=== PATIENT | female | born 1965 | race Caucasian/White ===

== ENCOUNTER 2020-11-23 16:50 | Emergency (ER) | payer OTHER, SELFPAY ==
[2020-11-23 17:20] VITALS: BP 150/110; PULSE 71; RESP 16; TEMP 36.5; O2SAT 99
--- NOTE | 2020-11-23 17:37 | ED.GENADULT ---
HPI - General Adult General Chief complaint: Upper Respiratory Infection Stated complaint: COVID Time Seen by Provider: 11/23/20 17:15 Source: patient and RN notes reviewed Mode of arrival: ambulatory Limitations: no limitations History of Present Illness HPI narrative: 55 year old female who presents to [facility] with concerns that she has developed dry cough, fatigue, body aches, headaches,chills, nausea and cramping, and brain fog since the 20 of November. Patient states that she knows she had exposure to COVID at [employer] on the with several [employer] members out with COVID. Patient concerned with symptoms being COVID with generalized body aches rated 5/10 has taken Tylenol for her body aches. MD complaint: body aches, headaches, fatigue, cramping with nausea Onset (ago): day(s) (4 days symptoms, exposure on November 11) Location: head (headache) and abdomen (cramping and nausea) Radiation: other (generalized body aches) Severity: moderate Severity scale (1-10): 5 Quality: aching and other (cramping abdomen with nausea) Pain Consistency: intermittent Relieving factors: other (Tylenol) Exacerbating factors: movement Associated symptoms: headaches, nausea/vomiting (nausea and abdominal cramping) and other (body aches, chills, brain fog) Treatments prior to arrival: other (Tylenol) Related Data Home Medications Medication Instructions Recorded Confirmed bupropion HCl 300 mg PO DAILY 11/23/20 11/23/20 ezetimibe-simvastatin 1 tablet PO DAILY 11/23/20 11/23/20 gabapentin 100 mg PO DAILY PRN 11/23/20 11/23/20 gabapentin 300 mg PO HS 11/23/20 11/23/20 propranolol 80 mg PO DAILY 11/23/20 11/23/20 rizatriptan [Maxalt-ROLL WRAPPER] 10 mg PO .PRN PRN 11/23/20 11/23/20 sertraline 100 mg PO BID 11/23/20 11/23/20 Allergies Allergy/AdvReac Type Severity Reaction Status Date / Time trazodone Allergy Unknown Skin Verified 11/23/20 17:29 Reaction calamine Allergy Rash Verified 11/23/20 17:29 Review of Systems Review of Systems: Narrative: CONSTITUTIONAL: Reports no known fever, positive chills, or sweats. EYES: Denies visual changes, redness, or discharge. ENT: Denies rhinorrhea, congestion, sore throat, or otalgia. CARDIOVASCULAR: Denies chest pain, palpitations, or edema. RESPIRATORY: Dry cough no dyspnea. GASTROINTESTINAL: Positive cramping of abdomen, nausea,no vomiting, or diarrhea. GENITOURINARY: Denies dysuria or hematuria. SKIN: Denies rash or itching. MUSCULOSKELETAL: Denies back pain, joint pain, generalized body aches NEUROLOGIC: Positive headache, no numbness, or weakness, states brain fog PSYCHIATRIC: Positive history of anxiety or depression. All systems reviewed & are unremarkable except as noted in HPI and below PMFSH Past Medical History Medical History (Updated 11/24/20 @ 00:00 by Eliana Vargas) Anxiety and depression Hot flashes, menopausal Hyperlipidemia Migraines Surgical History Surgical History (Updated 11/23/20 @ 18:34 by Rebeca Zhang NP) History of abdominoplasty History of endometrial ablation Hx of breast augmentation Family History Family History (Updated 11/23/20 @ 18:45 by Rebeca Zhang NP) Grandparent Heart disease Hypertension Sibling Heart disease Mother Hx of Guillain-[place] syndrome Social History Social History (Updated 11/23/20 @ 18:37 by Rebeca Zhang NP) Smoking status: Never smoker Alcohol intake: current Substance use: never Living arrangements: with family Gender identity (if verbalized by the patient): Female Comments At time of signature, agree with nursing past medical, surgical, social and family history. There is no relevant family history pertinent to the presenting complaint Exam Narrative: Exam Narrative: GENERAL: Well-appearing, well-nourished, and in no acute distress. HEAD: Normocephalic, atraumatic.Frontal headache no trauma, history of migraines, no nystagmus EYES: PERRLA and EOMI. ENT: Nares clear, no rhinorrhea or e
[2020-11-23 17:57] VITALS: BP 146/96
== END 2020-11-23 18:10 | disposition home or self-care (01) ==
PROVIDERS: Emergency Provider Registered Nurse; PCP Internal Medicine
DX: J06.9 Acute upper respiratory infection, unspecified (principal); B34.9 Viral infection, unspecified; Z20.828 Contact with and (suspected) exposure to other viral communicable diseases
CPT/HCPCS: 87426; 99213; C9803; G0463

== ENCOUNTER 2022-06-17 08:30 | Outpatient (CLI) | payer OTHER, SELFPAY ==
--- NOTE | ~2022-06-17 | MM_ITS ---
EXAMINATION: MM scrn nicholas implant BI w arnav HISTORY: Screening mammogram TECHNIQUE: Craniocaudal and mediolateral oblique 3-D tomosynthesis images with implant displacement a nd synthetic 2-D images were generated. Craniocaudal and mediolateral oblique views of the breasts wi thout implant displacement were obtained using full field digital mammography. CAD analysis was submi tted and interpreted. COMPARISON: No prior mammogram is available for comparison at this institution. BREAST PARENCHYMAL COMPOSITION: There are scattered areas of fibroglandular density. FINDINGS: There is no evidence of suspicious mass, calcification, or architectural distortion to sugg est malignancy in either breast. There has been no suspicious interval change. IMPRESSION: 1. No mammographic evidence of malignancy. 2. Recommend routine screening mammography in one year. BI-RADS Category 1: Negative Reviewed, dictated and finalized at location A.
== END 2022-06-17 08:31 | disposition home or self-care (01) ==
PROVIDERS: PCP Internal Medicine; Visit Provider Internal Medicine
DX: Z12.31 Encounter for screening mammogram for malignant neoplasm of breast (principal)
CPT/HCPCS: 77063; 77067

== ENCOUNTER 2023-04-03 01:51 | Day surgery (SDC) | payer OTHER, SELFPAY ==
[2023-03-24 14:13] VITALS: BMI 25.4
[2023-04-03 11:20] VITALS: BP 106/75; PULSE 62; RESP 18; TEMP 36.2; O2SAT 100
[2023-04-03] MEDS: LACTATED RINGERS 1,000 ML 150 ML IV CONT (11:45)
--- NOTE | 2023-04-03 11:51 | PM.HPGS ---
History of Present Illness History of Present Illness Consent: Risks, benefits, and alternatives have been discussed and questions answered. Patient agrees to proceed with procedure. Chief complaint: IBS-D Narrative: Kendell Weiss is a 57 year old female Referred by primary care service because of irritable bowel syndrome with diarrhea. Urgent colonoscopy evaluation is requested. Patient reports for at least 2 years she has had diarrhea. She states typically these are loose watery stools in the morning. Sometimes it will be come more solid later in the day. Patient reports she had 1 day with rather significant profuse more severe diarrhea 2 weeks ago. This only lasted for 1 day. Patient denies any fever. She has no bleeding. She does not have diarrhea at night. She denies any recent change in medications. She does have occasional lower abdominal cramping associated with bowel movements. Patient has not taken any specific therapy for her irritable bowel syndrome nor for the diarrhea. She states she does not take this because she is fearful of becoming constipated. Patient last was constipated more than 25 years ago at the time of delivery of 1 of her children. Patient's family history is noncontributory. There has been no recent change in her medications. She does take medications for depression. Review of Systems Review of Systems: Review of systems noncontributory. [facility] Past Medical History Medical History (Updated 04/03/23 @ 11:54 by Gio Kraus MD) Anxiety and depression Hot flashes, menopausal Hyperlipidemia Migraines Surgical History Surgical History (Updated 11/23/20 @ 18:34 by Rebeca Zhang NP) History of abdominoplasty History of endometrial ablation Hx of breast augmentation Family History Family History (Updated 11/23/20 @ 18:45 by Rebeca Zhang NP) Grandparent Heart disease Hypertension Sibling Heart disease Mother Hx of Guillain-[place] syndrome Social History Social History (Updated 11/23/20 @ 18:37 by Rebeca Zhang NP) Smoking status: Never smoker Alcohol intake: current Alcohol use details: socially Substance use: never Substance use type: does not use Living arrangements: with family Gender identity (if verbalized by the patient): Female Spiritual care concerns: No Meds Home Medications and Allergies Home Medications Medication Instructions Recorded Confirmed Type bupropion HCl 300 mg 24 hr tablet, 300 mg PO DAILY 11/23/20 03/24/23 History extended release ezetimibe 10 mg-simvastatin 10 mg 1 tablet PO DAILY 11/23/20 03/24/23 History tablet gabapentin 300 mg capsule 300 mg PO HS 11/23/20 03/24/23 History propranolol 80 mg capsule,24 80 mg PO DAILY 11/23/20 03/24/23 History hr,extended release rizatriptan 10 mg disintegrating 10 mg PO .PRN PRN Migraine Headache 11/23/20 03/24/23 History tablet (Maxalt-PERSONAL COMPUTER SPECIALIST) Vitamin C 1 tab-cap PO DAILY 03/24/23 03/24/23 History Vitamin D3 1 tab-cap PO DAILY 03/24/23 03/24/23 History multivit with minerals-iron 18 1 tablet PO DAILY 03/24/23 03/24/23 History mg-folic ac 400 mcg-vit K 25 mcg tablet (Adults Multivitamin) sertraline 100 mg tablet 100 mg PO DAILY 03/24/23 03/24/23 History Allergies Allergy/AdvReac Type Severity Reaction Status Date / Time trazodone Allergy Unknown Skin Verified 04/03/23 11:18 Reaction calamine Allergy Rash Verified 04/03/23 11:18 Vital Signs Vital Signs - 24 hr 04/03/23 11:20 Temperature 97.2 F L Pulse Rate 62 Respiratory Rate 18 Blood Pressure 106/75 Pulse Oximetry 100 Oxygen Delivery Room Air Exam Narrative: Physical exam reveals patient to be alert. Vital signs stable. HEENT exam reveals no icterus. Lungs are clear to auscultation and percussion. Heart is without murmur or extra sounds. Abdomen bowel sounds are present soft nontender with no organomegaly. Digital external rectal exam normal.
--- NOTE | 2023-04-03 12:31 | WPDANESEPPF ---
Anes - Initial Pre Proc Eval Procedure: Operation Date: 04/03/23 12:30 Proposed Procedures p Colonoscopy - Gio Kraus MD Date/Time: 04/03/23 12:31 Surgeon: Gio Kraus MD Pre Op Diagnosis: IBS-D Patient Data Age: 57 Gender: F Height: 1.55 m Weight: 61.9 kg Last Vital Signs Temp 97.2 F L 04/03/23 11:20 Pulse 62 04/03/23 11:20 Resp 18 04/03/23 11:20 BP 106/75 04/03/23 11:20 Pulse Ox 100 04/03/23 11:20 O2 Del Method Room Air 04/03/23 11:20 Allergies Allergy/AdvReac Type Severity Reaction Status Date / Time trazodone Allergy Unknown Skin Verified 04/03/23 11:18 Reaction calamine Allergy Rash Verified 04/03/23 11:18 Home Medications Medication Instructions Recorded Confirmed Type bupropion HCl 300 mg 24 hr tablet, 300 mg PO DAILY 11/23/20 03/24/23 History extended release ezetimibe 10 mg-simvastatin 10 mg 1 tablet PO DAILY 11/23/20 03/24/23 History tablet gabapentin 300 mg capsule 300 mg PO HS 11/23/20 03/24/23 History propranolol 80 mg capsule,24 80 mg PO DAILY 11/23/20 03/24/23 History hr,extended release rizatriptan 10 mg disintegrating 10 mg PO .PRN PRN Migraine Headache 11/23/20 03/24/23 History tablet (Maxalt-SUPERVISOR C[employer] PROCESSING) Vitamin C 1 tab-cap PO DAILY 03/24/23 03/24/23 History Vitamin D3 1 tab-cap PO DAILY 03/24/23 03/24/23 History multivit with minerals-iron 18 1 tablet PO DAILY 03/24/23 03/24/23 History mg-folic ac 400 mcg-vit K 25 mcg tablet (Adults Multivitamin) sertraline 100 mg tablet 100 mg PO DAILY 03/24/23 03/24/23 History Patient hx anesthesia problems: none Family hx anesthesia problems: none Results Review: All pre-operative results and documents have been reviewed as part of the pre-operative evaluation. [facility] Past Medical History Medical History (Updated 04/03/23 @ 11:54 by Gio Kraus MD) Anxiety and depression Hot flashes, menopausal Hyperlipidemia Migraines Surgical History Surgical History (Updated 11/23/20 @ 18:34 by Rebeca Zhang NP) History of abdominoplasty History of endometrial ablation Hx of breast augmentation Family History Family History (Updated 11/23/20 @ 18:45 by Rebeca Zhang NP) Grandparent Heart disease Hypertension Sibling Heart disease Mother Hx of Guillain-[place] syndrome Social History Social History (Updated 11/23/20 @ 18:37 by Rebeca Zhang NP) Smoking status: Never smoker Alcohol intake: current Alcohol use details: socially Substance use: never Substance use type: does not use Living arrangements: with family Gender identity (if verbalized by the patient): Female Spiritual care concerns: No Anes - Eval Final PreProcedure Day of Procedure 04/03/23 12:31 Patient weight: normal Heart: regular rate and rhythm Lungs: clear to auscultation Airway: Mallampati scale class II Neurological: alert and oriented Last oral intake: >/= 8 hours ASA classification: II Emergent: no Anesthetic plan: proceed Anesthesia type and monitoring: general GIVS and standard monitoring Results Review: All pre-operative results and documents have been reviewed as part of the pre-operative evaluation. Informed Consent: The patient's anesthetic plan and its attendant risks and benefits were discussed with the patient/family/POA. Questions were solicited and answers provided to the satisfaction of the patient/family/POA.
[2023-04-03 13:01] VITALS: BP 92/56; PULSE 56; RESP 18; O2SAT 96
[2023-04-03 13:11] VITALS: BP 99/59; PULSE 55; RESP 22; O2SAT 98
[2023-04-03 13:21] VITALS: BP 113/72; PULSE 53; RESP 20; O2SAT 100
== END 2023-04-03 13:28 | disposition home or self-care (01) ==
PROVIDERS: PCP Internal Medicine; Visit Provider Internal Medicine Gastroenterology
PROC: 0DJD8ZZ Inspection of Lower Intestinal Tract, Via Natural or Artificial Opening Endoscopic (ICD-10-PCS; CPT 45378; principal; 2023-04-03 12:30)
DX: K58.0 Irritable bowel syndrome with diarrhea (principal); K63.5 Polyp of colon; K64.8 Other hemorrhoids; E78.5 Hyperlipidemia, unspecified; F41.9 Anxiety disorder, unspecified; F32.A Depression, unspecified
CPT/HCPCS: 45380; 88305; J2704; J7120

== ENCOUNTER 2023-07-02 07:15 | Outpatient (CLI) | payer OTHER, SELFPAY ==
--- NOTE | ~2023-07-02 | MM_ITS ---
EXAMINATION: MM scrn nicholas implant BI w arnav HISTORY: Screening mammogram TECHNIQUE: Craniocaudal and mediolateral oblique 3-D tomosynthesis images with implant displacement a nd synthetic 2-D images were generated. Craniocaudal and mediolateral oblique views of the breasts wi thout implant displacement were obtained using full field digital mammography. CAD analysis was submi tted and interpreted. COMPARISON: 06/17/2022 BREAST PARENCHYMAL COMPOSITION: Breast composed of scattered areas of fibroglandular density FINDINGS: There is a new focal asymmetry in the upper outer quadrant of the right breast anteriorly. The left breast is stable without evidence for malignancy. IMPRESSION: 1. No focal right breast asymmetry upper outer quadrant of the right breast anteriorly near the areol a. 2. Additional mammographic views and possible breast ultrasound are recommended. BI-RADS Category 0: Incomplete: Needs additional imaging evaluation. Reviewed, dictated and finalized at location A. IMPRESSION: 1. No focal right breast asymmetry upper outer quadrant of the right breast ant eriorly near the areola. 2. Additional mammographic views and possible breast ultrasound are recommended . BI-RADS Category 0: Incomplete: Needs additional imaging evaluation.
--- NOTE | ~2023-07-02 | DEXA_ITS ---
Bone Density Report Name: CHAYO JON Age: 57 Sex: Female Ethnicity: Clint Date of : 1965 Indication: postmenopausal; screening for osteoporosis; height loss; prior fracture; Referring Provider: VICKY BOLAÑOS Study: Bone densitometry was performed. Exam Date: July 02, 2023 Accession number: [id number] Bone Density: Region BMD T-score Z-score Classification AP Spine(L1-L4) 0.820 -2.1 -0.9 Osteopenia Femoral Neck (Left) 0.721 -1.1 0.0 Osteopenia Total Hip (Left) 0.873 -0.6 0.2 Normal Femoral Neck (Right) 0.734 -1.0 0.1 Normal Total Hip (Right) 0.840 -0.8 -0.1 Normal Femoral Neck Mean 0.728 -1.1 0.0 Osteopenia Total Hip Mean 0.856 -0.7 0.1 Normal World Health Organization criteria for BMD impression classify patients as: Normal (T-score at or above -1.0), Osteopenia (T-score between -1.0 and -2.5), or Osteoporosis (T-score at or below -2.5). 10-year Fracture Risk(1): Major Osteoporotic Fracture 11% Hip Fracture 0.7% Reported Risk Factors: [place] (), Neck BMD=0.721, BMI=27.3, previous fracture (1) FRAX(R) Version 3.08. Fracture probability calculated for an untreated patient. Fracture probability may be lower if the patient has received treatment. Clinical Information Provided by Patient: Has had a low trauma fracture Has used the following medications: Vitamin D, Calcium Patient maximum height was 62 Menopause Age: 51 No regular weight bearing exercise Drinks caffeinated beverages Onset of menses at age 17 Number of children 2 Impression: The patient has low bone mass, based on the Total Spine T-score. The patient has risk factors, including: previous fracture. Discussion: BONE DENSITY IS LOW AT ONE OR MORE SKELETAL SITES. This patient's lowest T-score is low at one or more skeletal sites. It meets the World Health Organization's (WHO) criteria for ?low bone mass? (T-score between -1.0 and -2.5). The patient's 10-year risk of fracture as calculated by FRAX is less than the threshold where pharmacological therapy is recommended by the National Osteoporosis Foundation (NOF). However, all treatment decisions require clinical judgment and consideration of individual patient factors, including patient preferences, comorbidities, previous drug use, risk factors not captured in the FRAX model (e.g., frailty, falls, vitamin D deficiency, increased bone turnover, interval significant decline in bone density) and possible under or overestimation of fracture risk by FRAX. The patient should follow a healthful lifestyle (good nutrition with adequate calcium and vitamin D, and appropriate weight-bearing exercise). Follow-Up: Consider repeating this study in 2 to 3 years to reassess this patient's status, or sooner if there is some new clinical
== END 2023-07-02 07:16 | disposition home or self-care (01) ==
LOC: CHSIMG 07:16
PROVIDERS: PCP Internal Medicine; Visit Provider Internal Medicine
DX: Z12.31 Encounter for screening mammogram for malignant neoplasm of breast (principal); Z78.0 Asymptomatic menopausal state; M85.89 Other specified disorders of bone density and structure, multiple sites; R92.8 Other abnormal and inconclusive findings on diagnostic imaging of breast
CPT/HCPCS: 77063; 77067; 77080

== ENCOUNTER 2023-07-06 09:49 | Outpatient (CLI) | payer OTHER, SELFPAY ==
--- NOTE | ~2023-07-06 | MM_ITS ---
EXAMINATION: MM diag nicholas implant RT w arnav HISTORY: New focal right breast asymmetry reported in upper outer quadrant of right breast anteriorly near the areola on 07/02/2023 screening mammogram TECHNIQUE: Additional 3-D tomosynthesis images of the right breast were performed and synthetic 2-D i mages were generated. CAD analysis was submitted and interpreted. COMPARISON: 07/02/2023 bilateral implant screening mammogram FINDINGS: No suspicious mass is detected on these supplemental views. The previously reported finding was due to summation of overlying normal fibroglandular content. IMPRESSION: 1. No mammographic evidence of malignancy 2. Routine annual mammographic screening is recommended BI-RADS Category 1: Negative Reviewed, dictated and finalized at location A.
== END 2023-07-06 09:50 | disposition home or self-care (01) ==
LOC: CHSIMG 09:51
PROVIDERS: PCP Internal Medicine; Visit Provider Internal Medicine
DX: R92.8 Other abnormal and inconclusive findings on diagnostic imaging of breast (principal)
CPT/HCPCS: 77061; 77065; G0279

== ENCOUNTER 2023-10-26 14:48 | Outpatient (CLI) | payer OTHER, SELFPAY ==
--- NOTE | 2023-10-26 | ECHO_ITS ---
Patient Info Name: Kendell Weiss Age: 58 years : 1965 Gender: Female Ht: 60 in Wt: 137 lbs BSA: 1.64 m2 HR: 60 bpm BP: 135 / 91 mmHg Heart Rhythm: Sinus Rhythm Technical Quality: Fair Exam Date: 10/26/2023 3:03 PM Exam Location: Echo Lab Patient Status: Outpatient Admit Date: 10/26/2023 Staff Ordering Physician: Claudia Jaramillo MD Auto Transmission Mechanic: Angelia Joy RDCS Attending Provider: Claudia Jaramillo MD Referring Physician: Clint KRAUS; Exam Type: CA echo doppler color flow Study Info Indications - cardiac arrythmia Complete two-dimensional, color flow and Doppler transthoracic echocardiogram is performed. Summary 1. Complete two-dimensional, color flow and Doppler transthoracic echocardiogram is performed. 2. Left ventricular chamber dimension is normal. 3. Left ventricular systolic function is normal, estimated at 65-70%. 4. The left ventricular diastolic function is grade I diastolic dysfunction. 5. E/e' 5 is not elevated. 6. There is mild aortic valve sclerosis. 7. There is trace aortic valve regurgitation. 8. No pulmonary hypertension, estimated pulmonary arterial systolic pressure is 26 mmHg. Left Ventricle E/e' 5 is not elevated. Left ventricular chamber dimension is normal. Left ventricular systolic function is normal, estimated at 65-70%. The left ventricular diastolic function is grade I diastolic dysfunction. Right Ventricle Right ventricular systolic function is normal and with normal TAPSE 2.0 cm. Right ventricular chamber dimension is normal. Left Atria Left atrial chamber dimension is normal. Right Atria Right atrial chamber dimension is normal. Aortic Valve The aortic valve is trileaflet. There is mild aortic valve sclerosis. There is no aortic valve stenosis. There is trace aortic valve regurgitation. Pulmonic Valve There is no pulmonic regurgitation. Mitral Valve There is no mitral valve stenosis. There is no mitral valve regurgitation. Tricuspid Valve There is no tricuspid valve regurgitation. No pulmonary hypertension, estimated pulmonary arterial systolic pressure is 26 mmHg. Pericardium/Pleural There is no pericardial effusion. Inferior Vena Cava Normal inferior vena cava with >50% collapse upon inspiration consistent with normal right atrial pressure, 5 mmHg. Aorta The aortic root size at the sinus of Valsalva is normal. Left Ventricular Outflow Tract Name Value Normal LVOT 2D LVOT Diameter 2.0 cm LVOT Doppler LVOT Peak Gradient 3 mmHg LVOT Mean Gradient 2 mmHg LVOT VTI 21 cm LVOT VTI/AV VTI Ratio 0.8 LVOT Stroke Volume 63 ml LVOT CO 3.4 l/min LVOT CI 2.1 l/min/m2 Pulmonic Valve Name Value Normal RVOT Doppler RVOT Peak Gradient 2 mmHg
== END 2023-10-26 14:49 | disposition home or self-care (01) ==
PROVIDERS: PCP Internal Medicine; Visit Provider Internal Medicine
DX: R93.1 Abnormal findings on diagnostic imaging of heart and coronary circulation (principal); I35.8 Other nonrheumatic aortic valve disorders; I35.1 Nonrheumatic aortic (valve) insufficiency
CPT/HCPCS: 93306

== ENCOUNTER 2024-02-15 08:22 | Outpatient (CLI) | payer OTHER, SELFPAY ==
--- NOTE | ~2024-02-15 | US_ITS ---
EXAMINATION: US right upper quadrant DATE: 02/15/2024 08:47 INDICATION: Abnormal liver function tests. Abdominal pain. TECHNIQUE: Multiple grayscale and Doppler ultrasound images of the abdomen were obtained. COMPARISON: None FINDINGS: The visualized portions of the head, body, and tail of the pancreas are normal. The liver i s normal without focal lesion. No liver surface nodularity. There is normal flow in main portal vein. The gallbladder is normal in size. No gallstones or gallbladder wall thickening. There is no sonogra phic Shelby sign. The common duct is normal and measures 5 mm. IMPRESSION: 1. Normal right upper quadrant ultrasound. Reviewed, dictated and finalized at location A.
--- NOTE | 2024-02-15 08:33 | EST_ITS ---
Patient Info Name: Kendell Weiss Age: 58 years : 1965 Gender: Female Ht: 61 in Wt: 138 lbs BSA: 1.66 m2 HR: 54 bpm BP: 125 / 87 mmHg Technical Quality: Excellent Exam Date: 02/15/2024 10:30 AM Exam Location: Echo Lab Patient Status: Outpatient Admit Date: 02/15/2024 Staff Ordering Physician: HarryTip DO Attending Provider: ZechariahTip DO Exercise Technologist: Marie Dolan CRT Exercise Physician: Celina Borden CEP Exam Type: CA stress sherie w NM Study Info Indications ChestPain - A nuclear stress test was performed. History/Risk Factors NA. Summary 1. 1. Abnormal lexiscan stress test for ischemic ST changes by ECG criteria. 2. 2. Stable hemodynamics throughout the test. 3. 3. Nuclear scan to follow and will be reported separately. Please correlate with it. Protocol: LEXISCAN Stress ECG Details Stage: REST Duration (min): 1 min : 28 sec HR (bpm): 55 SBP (mmHg): 125 DBP (mmHg): 87 Stage: REST Duration (min): 5 min : 22 sec HR (bpm): 53 SBP (mmHg): 125 DBP (mmHg): 87 Stage: STAGE 1 Duration (min): 0 min : 22 sec HR (bpm): 52 SBP (mmHg): 125 DBP (mmHg): 87 Stage: RECOVERY Duration (min): 0 min : 37 sec HR (bpm): 69 SBP (mmHg): 125 DBP (mmHg): 87 Stage: RECOVERY Duration (min): 1 min : 37 sec HR (bpm): 87 SBP (mmHg): 125 DBP (mmHg): 87 Stage: RECOVERY Duration (min): 2 min : 37 sec HR (bpm): 80 SBP (mmHg): 118 DBP (mmHg): 79 Stage: RECOVERY Duration (min): 3 min : 37 sec HR (bpm): 82 SBP (mmHg): 120 DBP (mmHg): 81 Stage: RECOVERY Duration (min): 4 min : 37 sec HR (bpm): 78 SBP (mmHg): 120 DBP (mmHg): 81 Stage: RECOVERY Duration (min): 5 min : 37 sec HR (bpm): 70 SBP (mmHg): 132 DBP (mmHg): 83 Stage: RECOVERY Duration (min): 6 min : 2 sec HR (bpm): 72 SBP (mmHg): 132 DBP (mmHg): 83 Rest HR: 53 bpm Peak HR: 87 bpm Rest Sys BP: 125 mmHg Peak Sys BP: 132 mmHg Max Pred HR: 163 bpm % Max Pred HR: 53 % Target HR: 139 bpm Max RPP: 11,484 bpm*mmHg BP Response: Normal blood pressure response Termination Reason: Completion of Protocol Cardiac Symptoms: headache, nausea, Dyspnea Total Time: 0 min : 22 sec Rest Murphy BP: 87 mmHg Peak Murphy BP: 83 mmHg Total Dose: 0.4 mg Resting ECG Sinus bradycardia, borderline ST-T wave abnormality in diffuse leads. Stress ECG [address] depression in inferior leads, V3-V6. Arrhythmias None. Report Signatures
--- NOTE | 2024-02-15 17:54 | WPDCARIOSTRE ---
Nuclear Stress Test INDICATIONS Indications: Chest pain PROCEDURE Procedure Performed: Myocardial Perf Spect-Multi Procedure: Patient underwent a lexiscan stress test and immediately was injected with 30 mCi of cardiolyte. Multiple tomographic images were obtained. These are of good quality. There is moderate size, mild severity anteroseptal perfusion defect with stress imaging. A separate resting images were obtained after patient was injected with 10 mCi of cardiolyte. Multiple tomographic images were obtained. These are of good quality. There is moderate size, mild severity anteroseptal perfusion defect with rest imaging. CONCLUSION Conclusion: 1. Myocardial perfusion imaging demonstrating a fixed moderate size anteroseptal perfusion defect suggestive of breast attenuation artifact. 2. No evidence of reversible ischemia. 3. Left ventriculogram demonstrates normal measured ejection fraction of 73% with no wall motion abnormalities. 4. TID score 0.93 is normal.
== END 2024-02-15 08:23 | disposition home or self-care (01) ==
LOC: CHSIMG 08:25
PROVIDERS: PCP Internal Medicine; Visit Provider Family Medicine
DX: R94.5 Abnormal results of liver function studies (principal); R07.89 Other chest pain; R94.31 Abnormal electrocardiogram [ECG] [EKG]; R00.1 Bradycardia, unspecified; I49.9 Cardiac arrhythmia, unspecified
CPT/HCPCS: 76705; 78452; 93017; A9502; J2785

== ENCOUNTER 2024-09-22 17:12 | Outpatient (CLI) | payer OTHER, SELFPAY ==
[2024-09-22 18:00] LABS: Basophils Percent Auto 0.7 % (0.2-1.2); Eosinophils Absolute Auto 0.1 K/mm3 (0-0.3); Eosinophils Percent Auto 2.2 % (0-4.4); Hematocrit 39.2 % (37.0-47.0); Hemoglobin 13.3 g/dL (12.0-15.0); Immature Granulocyte Absolute 0.02 K/mm3 (0.00-0.031); Immature Granulocyte Percent A 0.3 % (0-0.5); Lymphocytes Absolute Auto 1.76 K/mm3 (0.9-3.2); Lymphocytes Percent Auto 29.2 % (18.3-44.2); Mean Corpuscular HGB Conc 33.9 g/dl (32-36); Mean Corpuscular Hemoglobin 30.1 pg (26-34); Mean Corpuscular Volume 88.7 fl (80-100); Mean Platelet Volume 10.4 fl (7.4-10.4); Monocytes Absolute Auto 0.6 K/mm3 (0.1-0.6); Neutrophils Absolute Auto 3.5 K/mm3 (1.3-6.7); Neutrophils Percent Auto 57.6 % (45.5-73.1); Platelet Count Result 227 k/mm3 (150-375); Red Blood Count 4.42 M/mm3 (4.2-5.4); Red Cell Distribution Width 12.6 % (11.5-14.5)
[2024-09-22 18:12] LABS: Alanine Aminotransferase 18 U/L (6-35); Albumin Level 4.3 g/dL (3.5-5.1); Alkaline Phosphatase 88 U/L (38-126); Anion Gap 10 mmol/L (4-12); Aspartate Amino Transferase 26 U/L (14-36); Bilirubin,Total 0.3 mg/dL (0.2-1.3); Blood Urea Nitrogen 27 mg/dL (7-17); Calcium 9.2 mg/dL (8.4-10.2); Carbon Dioxide 22 mmol/L (22-30); Chloride 104 mmol/L (98-107); Estimated Glomerular Filt Rate 57; Glucose 91 mg/dL (65-110); Potassium 3.8 mmol/L (3.4-5.0); Sodium 136 mmol/L (137-145)
[2024-09-22 18:23] LABS: Troponin I < 0.012 ng/mL (0.000-0.034)
== END 2024-09-22 17:13 | disposition home or self-care (01) ==
LOC: ANHLAB 17:17
PROVIDERS: PCP Internal Medicine; Visit Provider Internal Medicine
DX: R00.2 Palpitations (principal)
CPT/HCPCS: 36415; 80053; 83735; 84443; 84484; 85025

== ENCOUNTER 2025-06-01 16:34 | Emergency (ER) | payer OTHER, SELFPAY ==
--- OUTSIDE RECORDS SUMMARY | 2025-06-01 16:37 | XMS_ITS | Clinical Summary ---
Author Organization [facility] [employer] Address [address] [place] [address] Care Team Providers Care Peer Tutor Name Role Phone Unavailable Primary Care Provider Unavailabl e Source Comments [facility],non-owned Affiliates and Associated Physician Practices is amultiple site organization consisting of ambulatory clinics and hospital sitesin [place], [place], [place] and [place]. This disclosure is being madepursuant to the Care Everywhere program and may not contain all information available regarding this patient. Last updated 18.[facility] [employer] Allergies No known active allergies Immunizations Immunization Administration Dates Next Due INFLUENZA VACCINE, QUADR. (F LUZONE; FLULAVAL; FLUARIX; AFLURIA QUADRIVALENT; 6MO+), 0.5 ML (IIV4) 07/31/2020 Social History Tobacco Use Types Packs/Day Years Used Date Smoking Tobacco: Never Assessed Comments Unknown Sex and Gender Information Value Date Recorded Sex Assigned at Not on file Legal Sex Female 3:24 PM CDT Gender Identity Not on file Sexual Orientation Not on file Plan of Treatment Health Maintenance Due Date Last Done Comments COLOGUARD (AGES 45-75) - COL ON CA SCREENING 1966 COLON MONITORING 1966 COLONOSCOPY - COLON CA SCREENING 1966 CT COLONOGRAPHY - COLON CA SCREENING 1966 Colorectal Cancer Screening 1966 FIT - COLON CA SCREENING 1966 FLEX SIG - COLON CA SCREENING 1966 LIPID TESTING 1966 MAMMOGRAM 1966 HIV SCREENING 1981 HEPATITIS C SCREENING 08/19/1984 DTAP/TDAP/TD VACCINES (1 - Tdap) 1985 HEPATITIS B VACCINE (1 of 3 - 19+ 3-dose series) 1985 PAP SMEAR 1987 PNEUMOCOCCAL VACCINE 50+ (1 of 1 - PCV) 2016 ZOSTER VACCINE (1 of 2) 2016 COVID-19 VACCINE (1 - 2023-2 5 season) 2024 DEPRESSION SCREENING 11/16/2024 INFLUENZA VACCINE (#1) 2025 07/31/2020 HIB VACCINE Aged Out No longer eligi ble based on patient's age to complete this topic HPV VACCINE Aged Out No longer eligi ble based on patient's age to complete this topic MENINGOCOCCAL (Group B) VACC INE SHARED DECISION-MAKING Aged Out No longer eligibl e based on patient's age to complete this topic MENINGOCOCCAL GROUPS A/C/Y/W VACCINE Aged Out No longer eligible b ased on patient's age to complete this topic Insurance [facility] Address: [facility] [address] [place] [address]
--- OUTSIDE RECORDS SUMMARY | 2025-06-01 16:37 | XMS_ITS | Clinical Summary ---
Author Organization [facility] Address [address] [place] [address] Phone Care Team Providers Care Meals On Wheels Driver Name Role Phone Provider, Unknown Primary Care Provider Unavaila ble Social History Tobacco Use Types Packs/Day Years Used Date Smoking Tobacco: Never Assessed Comments Unknown Sex and Gender Information Value Date Recorded Sex Assigned at Not on file Legal Sex Female 2:12 PM CDT Gender Identity Not on file Sexual Orientation Not on file Plan of Treatment Health Maintenance Due Date Last Done Comments Hepatitis C Virus (HCV) Screening 1966 TdaP Immunization 1966 Hepatitis B Immunization (1 of 3 - 19+ 3-dose series) 1985 Pap Smear 1987 Cervical Cancer Screening (CCS) 1996 HPV/Cotest 1996 Cologuard 2011 Colonoscopy 2011 Colorectal Cancer Screening 2011 Immunochemical Fecal Occult Blood 2011 Pneumococcal Immunization (5 0+ years) (1 of 1 - PCV) 2016 Zoster Immunization (1 of 2) 2016 SARS-COV-2 Immunization (3 - 2023- season) 2024 03/05/2021, 02/14/2021 Influenza Immunization (#1) 2025 Respiratory Syncytial Virus (RSV) Immunization (Adult) (1 - 1-dose 75+ series) 2041 Human Papillomavirus (HPV) Immunization Aged Out No longer eligible b ased on patient's age to complete this topic Meningococcal Immunization (ACWY) Aged Out No longer eligible b ased on patient's age to complete this topic Rotavirus Immunization Aged Out No lo nger eligible based on patient's age to complete this topic Care Teams Meals On Wheels Driver Relationship Specialty Start Date End Date Provider, Unknown UNKNOWN PCP - General 06/28/20
--- OUTSIDE RECORDS SUMMARY | 2025-06-01 16:37 | XMS_ITS | Encounter Summary ---
Author Organization [facility] Address [address] [place] [address] Care Team Providers Care Driver Courier Name Role Phone Jonn Darden MD Primary Care Provider [phone] Encounter Details Date Type Department Care Team (Latest Contact Info) Description 10/14/2001 Outpatient Historical [facility] Minnie Snider MD [address] [place] [phone] SCREENING MAMM-MAILG NEOPL-OTHER (Primary Dx) Social History Tobacco Use Types Packs/Day Years Used Date Smoking Tobacco: Never Assessed Comments Unknown Sex and Gender Information Value Date Recorded Sex Assigned at Not on file Legal Sex Female 4:19 AM MAINTENANCE PARTS TECHNICIAN Gender Identity Not on file Sexual Orientation Not on file documented as of this encounter Plan of Treatment Not on file documented as of this encounter Visit Diagnoses Diagnosis Other screening mammogram- Primary documented in this encounter Additional Health Concerns Infection Onset Date Last Indicated Resolved Time R/O COVID-19 11/18/2021 11/18/2021 11/19/2021 8:17 PM MAINTENANCE PARTS TECHNICIAN documented as of this encounter Care Teams Driver Courier Relationship Specialty Start Date End Date Jonn Darden MD [address] [place] [address] PCP - General 10/14/01 documented as of this encounter
--- OUTSIDE RECORDS SUMMARY | 2025-06-01 16:37 | XMS_ITS | Clinical Summary ---
Author Organization [facility] Address [address] [place] [address] Phone Care Team Providers Care Director Hedis Name Role Phone Jonn Darden MD Primary Care Provider [phone] Allergies Active Allergy Reactions Criticality Noted Date Comments Calamine Hives High 08/25/2013 Medications buPROPion XL 24 hour (WELLBUTRIN XL) 300 mg Oral tablet Take 300 mg by mouth daily diploma medical assistant. Active EZETIMIBE/SIMVAST ATIN (VYTORIN 10-10 ORAL) Take by mouth. Active citalopram (CELEXA) 20 mg Oral tablet Take 20 mg by mouth daily at bedtime. Active MV-MN/FA/D3/LYCOP YAN/LUT/COQ10 (DAILY MULTIVITAMIN ORAL) Take by mouth. Active Active Problems Problem Noted Date Diagnosed Date Dense breast 11/21/2015 Family History Medical History Relation Name Comments High Cholesterol Father Breast Cancer Maternal Grandmother Lung Cancer Maternal Grandmother High Cholesterol Mother Cancer Neg Hx Cervical Cancer Neg Hx Colon Cancer Neg Hx Ovarian Cancer Neg Hx Uterine Cancer Neg Hx Relation Name Status Comments Father Alive Maternal Grandmother Mother Alive Social History Tobacco Use Types Packs/Day Years Used Date Smoking Tobacco: Never Smokeless Tobacco: Never Alcohol Use Standard Drinks/Week Comments Yes 0 (1 standard drink = 0.6 oz pur e alcohol) occasionally Comments No Sex and Gender Information Value Date Recorded Sex Assigned at Not on file Legal Sex Female 4:19 AM BARREL PAINTER Gender Identity Not on file Sexual Orientation Not on file Occupation Industry Job Start Date Job End Date Not on file Not on file Not on file Not on file Last Filed Vital Signs Vital Sign Reading Time Taken Comments Blood Pressure 120/77 11/18/2021 5:33 PM BARREL PAINTER Pulse 73 11/18/2021 5:33 PM BARREL PAINTER Temperature 36.8 C (98.3 F) 11/18/2021 5:33 PM BARREL PAINTER Respiratory Rate 16 11/18/2021 5:33 PM BARREL PAINTER Oxygen Saturation 98% 11/18/2021 5:33 PM BARREL PAINTER Inhaled Oxygen Concentration - - Weight 61.2 kg (135 lb) 11/18/2021 5:33 PM BARREL PAINTER Height 152.4 cm (5') 11/18/2021 5:33 PM BARREL PAINTER Body Mass Index 26.37 11/18/2021 5:33 PM BARREL PAINTER Plan of Treatment Health Maintenance Due Date Last Done Comments DTAP/TDAP/TD VACCINES (1 - Tdap) 1985 HEPATITIS B VACCINES (1 of 3 - 19+ 3-dose series) 1985 COLORECTAL SCREENING 2011 Colorectal Cancer Screening 2011 FIT-DNA Q 3 years 2011 FIT/FOBT Q 1 year 2011 Flex Sig/CT Colonography Q 5 years 2011 ZOSTER VACCINE (1 of 2) 2016 BREAST CANCER SCREENING 11/20/2016 11/20/19 16, 10/02/2014, 08/25/2013, Additional history exists CERVICAL CANCER SCREENING 11/20/2016 PAP SMEAR 11/20/2016 11/20/2015, 09/16, 08/25/2013, Additional history exists HPV/Cotest (21-29) 11/20/2020 11/20/2015, 10/02/2014 HPV/Cotest (30-65) 11/20/2020 11/20/2015, 10/02/2014 INFLUENZA VACCINE (#1) 2025 07/31/2020 Procedures Procedure Name Priority Date/Time Associated Diagnosis Comments MAMMO SCREEN IMPL BILAT W OR WO CAD Routine 11/20/2015 1:18 PM BARREL PAINTER Encounter for screening mammogram for malignant neoplasm of breast CERV/VAG CYTO SCREEN PAP RLFX HPV Routine 11/20/2015 11:19 AM BARREL PAINTER Well female exam with routine gynecological exam Screening for malignant neoplasm of cervix from Last 3 Months or Most Recently Relevant to Health Maintenance Results * MAMMO DIGITAL SCREEN IMPLANTS BILAT (11/20/2015 1:18 PM BARREL PAINTER) Anatomical Region Laterality Modality Breast Bilateral Mammography 11/20/2015 1:06 PM BARREL PAINTER Impressions 11/20/2015 4:38 PM BARREL PAINTER IMPRESSION: No interval change and no mammographic evidence of malignancy. Routine followup is recommended. OVERALL ASSESSMENT: BI-RADS category 1 - Negative Narrative 11/20/2015 4:38 PM BARREL PAINTER BILATERAL SCREENING DIGITAL MAMMOGRAMS WITH COMPUTER ASSISTED DIAGNOSIS DATE: 11/20/2015 HISTORY: Annual screening study. COMPARISON: Comparison mammograms from 10/02/14 to 04/17/08. FINDINGS: The breast parenchyma is heterogeneously dense. There is no dominant mass, spiculation, architectural distortion, skin thickening or malignant calcifications. Bilateral breast implants have a normal contour. CAD was utilized. Procedure Note Madelaine Dumont MD - 11/20/2015 BILATERAL SCREENING DIGITAL MAMMOGRAMS WITH COMPUTER ASSISTED DIAGNOSIS DATE: 11/20/2015 HISTORY: Annual screening study. COMPARISON: Comparison mammograms from 10/02/14 to 04/17/08. FINDINGS: The breast parenchyma is heterogeneously dense. There is no dominant mass, spiculation, architectural distortion, skin thickening or malignant calcifications. Bilateral breast implants have a normal contour. CAD was utilized. IMPRESSION IMPRESSION: No interval change and no mammographic evidence of malignancy. Routine followup is recommended. OVERALL ASSESSMENT: BI-RADS category 1 - Negative us Minnie Marquis MD MAMMO ORDERABLES Final Resul t * CERV/VAG CYTOPATH, THIN PREP IMAGR RFLX HPV (CP) (11/20/2015 11:19 AM BARREL PAINTER) CLINICAL INFORMATION SEE COMMENT 11/21/2015 4:50 PM BARREL PAINTER [facility] Comment:Information not prov ided LAST MENSTRUAL PERIOD [id number] 11/21/2015 4:50 PM BARREL PAINTER [facility] PREV PAP: NIL 11/21/2015 4:50 PM BARREL PAINTER [facility] PREV BX: SEE COMMENT 11/21/2015 4:50 PM BARREL PAINTER [facility] Comment:Information not prov ided SOURCE Endocervix 11/21/2015 4:50 PM BARREL PAINTER [facility] ADEQUACY: SEE COMMENT 11/21/2015 4:50 PM BARREL PAINTER [facility] Comment: Satisfactory for evaluation. Endocervical/transformation zone component absent. INTERPRETATION SEE COMMENT 11/21/2015 4:50 PM BARREL PAINTER [facility] Comment:Negative for intraep ithelial lesion or malignancy. COMMENT SEE COMMENT 11/21/2015 4:50 PM BARREL PAINTER [facility] Comment: This Pap test has been evaluated with computer assisted technology. TRASH COLLECTOR SUPERVISOR: SEE COMMENT 11/21/2015 4:50 PM BARREL PAINTER [facility] Comment: BAB, CT(ASCP) CT screening location: [place] [address] [address] [address] Endocervical Collection / Unknown 11/20/2015 11:19 AM BARREL PAINTER 11/20/2015 2:44 PM BARREL PAINTER Narrative [facility] - 11/21/2015 4:50 PM BARREL PAINTER Performing Organization Information: Site ID: Name: [facility] Address: [address] [address] [address] Director: Etelvina Das MD us Minnie Marquis MD PATHOLOGY/CYTOLOGY ORDERABLE S Final Result [facility] [address] [place] [address], from Last 3 Months or Most Recently Relevant to Health Maintenance Insurance [facility] [id number] [facility] OPEN ACCESS PLUS Care Teams Director Hedis Relationship Specialty Start Date End Date Jonn Darden MD [address] [place] [address] PCP - General 10/14/01
--- OUTSIDE RECORDS SUMMARY | 2025-06-01 16:37 | XMS_ITS | Encounter Summary ---
Author Organization [employer] Address [address] [place] [address] Care Team Providers Care Behavior Clinician Name Role Phone Jonn Darden MD Primary Care Provider [phone] Encounter Details Date Type Department Care Team (Late st Contact Info) Description 04/22/1999 Outpatient Historical [facility] Minnie Marquis MD [address] [place] [phone] Leiomyoma of uterus, unspecified (Primary Dx) Social History Tobacco Use Types Packs/Day Years Used Date Smoking Tobacco: Never Assessed Comments Unknown Sex and Gender Information Value Date Recorded Sex Assigned at Not on file Legal Sex Female 4:19 AM BUTTONER Gender Identity Not on file Sexual Orientation Not on file documented as of this encounter Plan of Treatment Not on file documented as of this encounter Visit Diagnoses Diagnosis Leiomyoma of uterus, unspecified- Primary documented in this encounter Additional Health Concerns Infection Onset Date Last Indicated Resolved Time R/O COVID-19 11/18/2021 11/18/2021 11/19/2021 8:17 PM BUTTONER documented as of this encounter Care Teams Behavior Clinician Relationship Specialty Start Date End Date Jonn Darden MD [address] [place] [address] PCP - General 10/14/01 documented as of this encounter
--- OUTSIDE RECORDS SUMMARY | 2025-06-01 16:37 | XMS_ITS | Encounter Summary ---
Author Organization [employer] Address [address] [place] [address] Care Team Providers Care Predatory Animal Exterminator Name Role Phone Jonn Darden MD Primary Care Provider [phone] Encounter Details Date Type Department Care Team (Late st Contact Info) Description 03/13/1999 Outpatient Historical [facility] Minnie Marquis MD [address] [place] [phone] Leiomyoma of uterus, unspecified (Primary Dx) Social History Tobacco Use Types Packs/Day Years Used Date Smoking Tobacco: Never Assessed Comments Unknown Sex and Gender Information Value Date Recorded Sex Assigned at Not on file Legal Sex Female 4:19 AM PODIATRIC ASSISTANT Gender Identity Not on file Sexual Orientation Not on file documented as of this encounter Plan of Treatment Not on file documented as of this encounter Visit Diagnoses Diagnosis Leiomyoma of uterus, unspecified- Primary documented in this encounter Additional Health Concerns Infection Onset Date Last Indicated Resolved Time R/O COVID-19 11/18/2021 11/18/2021 11/19/2021 8:17 PM PODIATRIC ASSISTANT documented as of this encounter Care Teams Predatory Animal Exterminator Relationship Specialty Start Date End Date Jonn Darden MD [address] [place] [address] PCP - General 10/14/01 documented as of this encounter
--- OUTSIDE RECORDS SUMMARY | 2025-06-01 16:37 | XMS_ITS | Encounter Summary ---
Author Organization [facility] Address [address] [place] [address] Care Team Providers Care Retirement Manager Name Role Phone Ha Hanson MD Primary Care Provider [phone] Encounter Details Date Type Department Care Team (Latest Contact Info) Description 04/07/2008 Outpatient Historical [facility] Dahlia Snider MD [address] [phone] Lump or Mass in Breast Social History Tobacco Use Types Packs/Day Years Used Date Smoking Tobacco: Never Assessed Comments Unknown Sex and Gender Information Value Date Recorded Sex Assigned at Not on file Legal Sex Female 4:19 AM OPEN SOAPER TENDER Gender Identity Not on file Sexual Orientation Not on file documented as of this encounter Plan of Treatment Not on file documented as of this encounter Procedures Procedure Name Priority Date/Time Associated Diagnosis Comments US BREAST Timed Study 04/07/2008 1:24 PM CDT MAMMO DIAGNOSTIC BILATERAL W OR WO CAD Timed Study 04/07/2008 1:24 PM CDT documented in this encounter Results * US BREAST (04/07/2008 1:24 PM CDT) Anatomical Region Laterality Modality Other 04/07/2008 1:24 PM CDT Narrative 04/12/2008 4:58 PM CDT [facility] [address] [place], [place] [address] Admit Date: 04/07/2008 KENDELL WEISS Sex: F Admit Prov: DAHLIA FARFAN Date: 1965 Primary Care Prov: HA HANSON CMRN: [id number] Room: MICHELLESohan SSN: [id number] IMAGING SERVICES Ordering Prov: DAHLIA FARFAN Accession Number: [id number] Interpretation BILATERAL FULL FIELD DIGITAL DIAGNOSTIC MAMMOGRAMS WITH COMPUTER AIDED DIAGNOSIS AND RIGHT BREAST ULTRASOUND, 04/07/2008 History: Patient has a palpable abnormality/pain in the high right axilla/right arm. Technique: Bilateral full field digital diagnostic mammograms were performed. CAD was utilized. No prior studies are available for comparison. Breast Composition: Heterogeneously dense, which lowers the sensitivity of mammography. Findings: No dominant masses, areas of asymmetry, or suspicious clustered microcalcifications are identified within either breast. The CAD system detects no significant abnormality. An ultrasound of the right axilla was performed. Within the right axilla, several normal-sized lymph nodes are identified. No solid or cystic lesions are identified within the right axilla. Overall Assessment: BI-RADS Category: 1, negative. Recommendation: Annual mammography is recommended. Clinical followup is recommended for the patient's right high axillary/right arm palpable abnormality/pain. Dictated by: MYRNA ALEGRIA Electronically signed by: MYRNA ALEGRIA 04/12/2008 16:58 Transcribed: 04/12/2008 14:19 DKT Procedure Note Myrna Alegria - 04/12/[address] [address] Admit Date: 04/07/2008 KENDELL WEISS Sex: F Admit Prov: DAHLIA FARFAN Date: 1965 Primary Care Prov: HA HANSON CMRN: [id number] Room: MICHELLESohan SSN: [id number] IMAGING SERVICES Ordering Prov: DAHLIA FARFAN Interpretation BILATERAL FULL FIELD DIGITAL DIAGNOSTIC MAMMOGRAMS WITH COMPUTERAIDED DIAGNOSIS AND RIGHT BREAST ULTRASOUND, 04/07/2008 History: Patient has a palpable abnormality/pain in the high right axilla/right arm. Technique: Bilateral full field digital diagnostic mammograms were performed. CAD was utilized. No prior studies are available forcomparison. Breast Composition: Heterogeneously dense, which lowers thesensitivity of mammography. Findings: No dominant masses, areas of asymmetry, or suspiciousclustered microcalcifications are identified within either breast. The CADsystem detects no significant abnormality. An ultrasound of the right axilla was performed. Within the rightaxilla, several normal-sized lymph nodes are identified. No solid or cysticlesions are identified within the right axilla. Overall Assessment: BI-RADS Category: 1, negative. Recommendation: Annual mammography is recommended. Clinical followupis recommended for the patient's right high axillary/right armpalpable abnormality/pain. Dictated by: MYRNA ALEGRIA Electronically signed by: MYRNA ALEGRIA 04/12/2008 16:58 Transcribed: 04/12/2008 14:19 DKT us Dahlia Farfan MD ORDERABLES Final Result * MAMMO DIGITAL DIAG BILAT (04/07/2008 1:24 PM CDT) Anatomical Region Laterality Modality Breast Bilateral Other 04/07/2008 1:24 PM CDT Narrative 04/12/2008 4:58 PM CDT [address] [address] Admit Date: 04/07/2008 NORAHSHANAKENDELL Sex: F Admit Prov: DAHLIA FARFAN Date: 1965 Primary Care Prov: HA HANSON CMRN: [id number] Room: JOSE SSN: [id number] IMAGING SERVICES Ordering Prov: DAHLIA FARFAN Accession Number: [id number] Interpretation BILATERAL FULL FIELD DIGITAL DIAGNOSTIC MAMMOGRAMS WITH COMPUTER AIDED DIAGNOSIS AND RIGHT BREAST ULTRASOUND, 04/07/2008 History: Patient has a palpable abnormality/pain in the high right axilla/right arm. Technique: Bilateral full field digital diagnostic mammograms were performed. CAD was utilized. No prior studies are available for comparison. Breast Composition: Heterogeneously dense, which lowers the sensitivity of mammography. Findings: No dominant masses, areas of asymmetry, or suspicious clustered microcalcifications are identified within either breast. The CAD system detects no significant abnormality. An ultrasound of the right axilla was performed. Within the right axilla, several normal-sized lymph nodes are identified. No solid or cystic lesions are identified within the right axilla. Overall Assessment: BI-RADS Category: 1, negative. Recommendation: Annual mammography is recommended. Clinical followup is recommended for the patient's right high axillary/right arm palpable abnormality/pain. Assessment BIRADS: 1-Negative Recommendation: Normal interval follow-up Dictated by: MYRNA ALEGRIA Electronically signed by: MYRNA ALEGRIA 04/12/2008 16:58 Transcribed: 04/12/2008 14:19 DKT Procedure Note Myrna Alegria - 04/12/[address] [address] Admit Date: 04/07/2008 KENDELL WEISS Sex: F Admit Prov: DAHLIA FARFAN Date: 1965 Primary Care Prov: HA HANSON CMRN: [id number] Room: JOSE SSN: [id number] IMAGING SERVICES Ordering Prov: DAHLIA FARFAN Interpretation BILATERAL FULL FIELD DIGITAL DIAGNOSTIC MAMMOGRAMS WITH COMPUTERAIDED DIAGNOSIS AND RIGHT BREAST ULTRASOUND, 04/07/2008 History: Patient has a palpable abnormality/pain in the high right axilla/right arm. Technique: Bilateral full field digital diagnostic mammograms were performed. CAD was utilized. No prior studies are available forcomparison. Breast Composition: Heterogeneously dense, which lowers thesensitivity of mammography. Findings: No dominant masses, areas of asymmetry, or suspiciousclustered microcalcifications are identified within either breast. The CADsystem detects no significant abnormality. An ultrasound of the right axilla was performed. Within the rightaxilla, several normal-sized lymph nodes are identified. No solid or cysticlesions are identified within the right axilla. Overall Assessment: BI-RADS Category: 1, negative. Recommendation: Annual mammography is recommended. Clinical followupis recommended for the patient's right high axillary/right armpalpable abnormality/pain. Assessment BIRADS: 1-Negative Recommendation: Normal interval follow-up Dictated by: MYRNA ALEGRIA Electronically signed by: MYRNA ALEGRIA 04/12/2008 16:58 Transcribed: 04/12/2008 14:19 DKT Dahlia Farfan MD MAMMO ORDERABLES Final Resul t documented in this encounter Visit Diagnoses Diagnosis Lump or mass in breast documented in this encounter Additional Health Concerns Infection Onset Date Last Indicated Resolved Time R/O COVID-19 11/18/2021 11/18/2021 11/19/2021 8:17 PM OPEN SOAPER TENDER documented as of this encounter Care Teams Retirement Manager Relationship Specialty Start Date End Date Ha Hanson MD [address] [place] [address] PCP - General 10/14/01 documented as of this encounter
--- OUTSIDE RECORDS SUMMARY | 2025-06-01 16:37 | XMS_ITS | Encounter Summary ---
Author Organization [facility] Address [address] [place] [address] Phone Care Team Providers Care Reclamation Furnace Operator Name Role Phone Provider, Unknown Primary Care Provider Unavaila ble Reason for Visit * Reason Onset Date Comments Results 06/27/2020 covid Encounter Details Date Type Department Care Team (Late st Contact Info) Description 06/27/2020 [facility]phone [facility] [address] [place] [address] Provider, None [place] Results (covid) Social History Tobacco Use Types Packs/Day Years Used Date Smoking Tobacco: Never Assessed Comments Unknown Sex and Gender Information Value Date Recorded Sex Assigned at Not on file Legal Sex Female 2:12 PM CDT Gender Identity Not on file Sexual Orientation Not on file COVID-19 Exposure Response Date Recorded In the last month, have you been in contact with someone who was confirmed or suspected to have Coronavirus / COVID-19? No / Unsure 06/25/2020 2:14 PM CDT documented as of this encounter Miscellaneous Notes * Telephone Encounter - Antoinette Banda RN - 06/27/2020 3:54 PM CDT Pt states she missed a call, believes it was her covid results. FYI to providers. Thank you! documented in this encounter Plan of Treatment Not on file documented as of this encounter Visit Diagnoses Not on filedocumented in this encounter Additional Health Concerns Infection Onset Date Last Indicated Resolved Time COVID - 19 06/25/2020 06/25/2020 06/28/2020 8:10 AM CDT documented as of this encounter Care Teams Reclamation Furnace Operator Relationship Specialty Start Date End Date Provider, Unknown UNKNOWN PCP - General 06/28/20 documented as of this encounter
[2025-06-01 16:40] VITALS: BP 152/107; PULSE 87; RESP 20; TEMP 36.8; O2SAT 100
--- NOTE | 2025-06-01 17:06 | ED_ITS ---
HPI - General Adult General Chief complaint: Unspecified Stated complaint: prescription refill Time Seen by Provider: 06/01/25 16:50 Source: patient and RN notes reviewed Mode of arrival: ambulatory Limitations: no limitations History of Present Illness HPI narrative: Patient presents today requesting a refill of her sertraline. She has been out for 1 week and is feeling depressed and mildly anxious. She denies suicidal ideations at this time. Reports some issues with her at home since she has been quite tearful since being of her medication. She thought she had a refill when she ran out, but didn't and is waiting to initiate care with a new PCP in 2 weeks. Related Data Home Medications ?Medication ?Instructions ?Recorded ?Confirmed ?Last Taken ?Type bupropion HCl 300 mg 24 hr tablet, 300 mg PO DAILY 11/23/20 03/24/23 04/02/23 History extended release ezetimibe 10 mg-simvastatin 10 mg 1 tablet PO DAILY 11/23/20 03/24/23 04/02/23 History tablet gabapentin 300 mg capsule 300 mg PO HS 11/23/20 03/24/23 04/02/23 History propranolol 80 mg capsule,24 80 mg PO DAILY 11/23/20 03/24/23 04/02/23 History hr,extended release rizatriptan 10 mg disintegrating 10 mg PO .PRN PRN Migraine Headache 11/23/20 03/24/23 04/03/23 07:00 History tablet (Maxalt-MOUSE BREEDER) Vitamin C 1 tab-cap PO DAILY 03/24/23 03/24/23 04/02/23 History Vitamin D3 1 tab-cap PO DAILY 03/24/23 03/24/23 04/02/23 History multivit with minerals-iron 18 1 tablet PO DAILY 03/24/23 03/24/23 04/02/23 History mg-folic ac 400 mcg-vit K 25 mcg tablet (Adults Multivitamin) sertraline 100 mg tablet 100 mg PO DAILY 03/24/23 03/24/23 04/03/23 07:00 History Allergies Allergy/AdvReac Type Severity Reaction Status Date / Time trazodone Allergy Unknown Skin Verified 06/01/25 16:45 Reaction calamine Allergy Rash Verified 06/01/25 16:45 [facility] Past Medical History Medical History Migraines Hot flashes, menopausal Anxiety and depression Hyperlipidemia Surgical History Surgical History Hx of breast augmentation History of abdominoplasty History of endometrial ablation Family History Family History Grandparent Heart disease Hypertension Sibling Heart disease Mother Hx of Guillain-[place] syndrome Social History Social History Smoking status: Never smoker Alcohol intake: current Alcohol use details: socially Substance use: never Substance use type: does not use Living arrangements: with family Gender identity (if verbalized by the patient): Female Spiritual care concerns: No Comments At time of signature, I have reviewed and agree with nursing past medical, surgical, social and family history unless otherwise noted. Please see nursing chart for further information. There is no relevant family history pertinent to the presenting complaint Exam Narrative: GENERAL: Well-appearing, well-nourished, tearful HEAD: Normocephalic, atraumatic. EYES: EOMI. No redness or drainage. Conjunctivae normal. ENT: Mucous membranes pink and moist. NECK: Normal AROM. CHEST: No respiratory distress. EXTREMITIES: Normal range of motion. No edema. SKIN: Warm, dry, no rash. Capillary refill normal. Normal skin turgor. NEURO: No focal deficits. Alert and oriented x3. Gait steady. PSYCH: Teaful, depressed affect. Course Course Level of Care: Express Care Visit Vital Signs Vital signs: Vital Signs Temperature 98.3 F 06/01/25 16:40 Pulse Rate 87 06/01/25 16:40 Respiratory Rate 20 06/01/25 16:40 Blood Pressure 152/107 H 06/01/25 16:40 Pulse Oximetry 100 06/01/25 16:40 Oxygen Delivery Room Air 06/01/25 16:40 Temperature 98.3 F 06/01/25 16:40 Pulse Rate 87 06/01/25 16:40 Respiratory Rate 20 06/01/25 16:40 Blood Pressure 152/107 H 06/01/25 16:40 Pulse Oximetry 100 06/01/25 16:40 Oxygen Delivery Room Air 06/01/25 16:40 Reviewed Medical Decision Making MDM Narrative Medical decision making narrative: 59-year-old female patient presents for medication refill of her sertraline that she ran out of 1 week ago. She is experiencing some depression and anxiety symptoms while waiting to initiate care with a new PCP in 2 weeks. Prescription for her sertraline has been sent to pharmacy. Will also refill her bupropion since she does not run out in case her appointment gets pushed back. Urged patient to come in for refill a few days before running out if this happens again so she does not have a lapse in her medication. Vital signs stable. Blood pressure a bit elevated, but she has been tearful and crying and has history of hypertension. Currently taking propranolol. Patient is going to stay with a friend this weekend to have some time away from her . Discussed proceeding to the ER if she has any suicidal thoughts. Patient agrees with plan. Differential Diagnosis Differential Diagnosis: Anxiety, depression, suicidal ideation rules, medication refill Vital Signs Vital Signs: Vital Signs Temperature 98.3 F 06/01/25 16:40 Pulse Rate 87 06/01/25 16:40 Respiratory Rate 20 06/01/25 16:40 Blood Pressure 152/107 H 06/01/25 16:40 Pulse Oximetry 100 06/01/25 16:40 Oxygen Delivery Room Air 06/01/25 16:40 Temperature 98.3 F 06/01/25 16:40 Pulse Rate 87 06/01/25 16:40 Respiratory Rate 20 06/01/25 16:40 Blood Pressure 152/107 H 06/01/25 16:40 Pulse Oximetry 100 06/01/25 16:40 Oxygen Delivery Room Air 06/01/25 16:40 Critical Care Time Critical Care Time Critical Care Time: No Discharge Plan Discharge Clinical Impression: Medication refill Depression Qualifiers: Depression Type: unspecified Qualified Code(s): F32.A - Depression, unspecified Patient Disposition: Home Condition: Stable Instructions: Depression (ED) Additional Instructions: Please take both medications as prescribed. Follow-up with your new PCP as scheduled on the . If you develop any suicidal thoughts, please go to the nearest emergency department for further care. Your blood pressure was elevated above 120/80 today at Urgent Care. This puts you above the threshold for follow up. Please schedule a followup visit with your personal physician as soon as possible, for further evaluation and treatment. Even blood pressure exceeding 120/80 may indicate pre-hypertension. Patient Language: [place] Prescriptions: New sertraline 100 mg tablet 200 mg PO DAILY 30 Days Qty: 60 0RF bupropion HCl 300 mg tablet extended release 24 hr 300 mg PO DAILY Qty: 30 0RF No Action rizatriptan [Maxalt-MOUSE BREEDER] 10 mg Tablet,Disintegrating 10 mg PO .PRN PRN (Reason: Migraine Headache) propranolol 80 mg capsule,extended release 24 hr 80 mg PO DAILY gabapentin 300 mg capsule 300 mg PO HS bupropion HCl 300 mg tablet extended release 24 hr 300 mg PO DAILY ezetimibe-simvastatin 10-10 mg tablet 1 tablet PO DAILY Adults Multivitamin 18 mg iron-400 mcg-25 mcg Tablet 1 tablet PO DAILY Vitamin C 1 tab-cap PO DAILY Vitamin D3 1 tab-cap PO DAILY sertraline 100 mg tablet 100 mg PO DAILY Follow-up/Referrals: PHYSICIAN,REFUSE LABORER [Primary Care Provider] - Stand Alone Forms: Work/School Release IP Time of Disposition: 17:05
== END 2025-06-01 17:10 | disposition home or self-care (01) ==
PROVIDERS: Emergency Provider Nurse Practitioner
DX: Z76.0 Encounter for issue of repeat prescription (principal); F32.A Depression, unspecified
CPT/HCPCS: 99211; G0463